=== PATIENT | male | born 1995 | race Caucasian/White ===

== ENCOUNTER 2023-09-16 17:50 | Emergency (ER) | payer OTHER ==
[~2023-09-16] VITALS: Ht 177.8 cm; Wt 117.9 kg
[2023-09-16 17:55] VITALS: BP_SYST 165; PULSE 99; RESP 19; TEMP 97.4; O2SAT 97
[2023-09-16] MEDS ORDERED: KETOROLAC TROMETHAMINE 30 MG VIAL IM ONE (18:15)
[2023-09-16] MEDS ORDERED: HYDR-3917 PO (19:27)
[2023-09-16] MEDS ORDERED: ZAN4 PO (19:27)
[2023-09-16 19:57] VITALS: BP_SYST 122; PULSE 82; RESP 18; O2SAT 98
== END 2023-09-16 19:55 | disposition home or self-care (01) ==
LOC: SED 17:50
DX: M54.16 Radiculopathy, lumbar region (principal); Z79.899 Other long term (current) drug therapy
CPT/HCPCS: 99285; 72131; 76376; 96372; J1885